=== PATIENT | male | born 1995 | race Caucasian/White ===

== ENCOUNTER 2022-08-19 14:14 | Emergency (ER) | payer MEDICAID, SELFPAY ==
[2022-08-19 14:15] VITALS: BP 157/100; PULSE 73; RESP 18; TEMP 37.1; O2SAT 99; BMI 30.2
--- NOTE | 2022-08-19 15:03 | EX.ED.DYSGE1 ---
HPI <VELVET Sanon - Last Filed: 08/19/22 16:02> History of Present Illness Chief Complaint: Other, Pain/Inj Narrative Narrative: Patient is a 26-year-old male with no stated medical history who presents to the emergency department with complaints of neck pain, throat pain on and off for the last 4 days. Patient states he did have a fever last evening. Patient states it is worsening with swallowing, eating. He denies any difficulty breathing. States maybe he had some ileus in the past however only last 2 days. He does not have a PCP at this time. PFSH <VELVET Sanon - Last Filed: 08/19/22 16:02> [facility] Medical History no medical history Home Medications ibuprofen 600 mg tablet 600 mg PO Q6H PRN PRN fever or pain #20 TABLETS 08/19/22 [Rx Last Taken Unknown] Social History Smoking Status: Never smoker ROS <VELVET Sanon - Last Filed: 08/19/22 16:02> ROS ED ROS Narrative Constitutional: Negative for fever, chills, weight loss, weakness Eyes: Negative for vision loss, vision change, double vision ENT: Negative for any ear pain, congestion. Positive for sore throat, intermittent anterior neck pain Cardiovascular: Negative for any chest pain, tightness, palpitations Respiratory: Negative for any cough, sputum production, hemoptysis, dyspnea, dyspnea on exertion, orthopnea Gastrointestinal: Negative for any abdominal pain, nausea, vomiting, diarrhea, constipation, blood in stool, blood in vomit : Negative for any urinary frequency, dysuria, retention, blood in urine Muscle skeletal: Negative for any muscle joint pain, stiffness, myalgias, arthralgias, neck pain, back pain Neurological: Negative for any headache, syncope, numbness or tingling, dizziness Skin: Negative for any rashes, lumps, itching, abrasions, lacerations Psychiatric: Negative for any depression, anxiety, stress, suicidal ideation, homicidal ideation Hematologic: Negative for any easy bruising, excessive bruising, easy bleeding Allergies: Negative for any eczema, hives, rash EXAM <VELVET Sanon Last Filed: 08/19/22 16:02> Physical Exam Narrative Exam Narrative: Vital signs reviewed. HEET: Head normocephalic atraumatic, TMs clear bilaterally. Posterior pharynx is clear, moist mucous membranes. Nares clear bilaterally. Patient does have slight erythema to the posterior pharynx. A for any exudate. Negative for any unilateral swelling. Negative for any uvula deviation.. Neck: Supple, patient does have some anterior cervical lymph node lymphadenopathy with slight tenderness. No tracheal deviation.. No signs of meningismus, negative jolt sign. Cardiac: Regular rate and rhythm no murmurs gallops or rubs, equal peripheral pulses bilaterally. Respiratory: Lungs clear to auscultation bilaterally. No chest tenderness. Abdomen: Soft, nontender, nondistended. No abdominal bruit or pulsatile masses. No hepatosplenomegaly Extremities: No peripheral edema, no signs of gross trauma or deformity. Active full range of motion of all extremities. Neuro: Cranial nerves II through XII intact, no focal neurological deficits. Skin: Clean dry and intact with no rash, purpura, petechiae, vesicles or pustules. Backs/flank: No CVA tenderness, no midline spinal tenderness, no deformity. Psych: Normal mood and affect. No SI, HI or acute psychosis. Const Vital Signs: 08/19/22 14:15 08/19/22 16:08 Temperature 98.8 F Temperature Source Temporal Pulse Rate 73 71 Respiratory Rate 18 15 Blood Pressure 157/100 H 108/67 Blood Pressure Mean 119 Pulse Ox 99 98 Oxygen Delivery Method Room Air <Dr. Ant Adams MD - Last Filed: 08/19/22 16:24> Physical Exam Const Vital Signs: 08/19/22 14:15 08/19/22 16:08 Temperature 98.8 F Temperature Source Temporal Pulse Rate 73 71 Respiratory Rate 18 15 Blood Pressure 157/100 H 108/67 Blood Pressure Mean 119 Pulse Ox 99 98 Oxygen Delivery Method Room Air [facility] <VELVET Sanon - Last Filed: 08/19/22 16:02> MDM Radiography Diagnostic Testing: Clinical Impression(s) from Imaging Studies Soft Tissue Neck X-Ray 08/19/22 15:27 IMPRESSION: No evidence of epiglottitis thickening or enlargement of this examination. Electronically Signed: Chay Melendez MD at 15:44 EST , Treatment and Re-Evaluation :: All radiologic examinations were read, reviewed by the emergency department attending. From these reads, a plan of care will be put in place. Patient appears generally well, patient appears nontoxic. Patient presents emerged part with 3 to 4 days of sore throat, generalized fatigue, malaise. Patient received a rapid strep, rapid influenza/COVID test which were negative. That was in the differential. Patient received a x-ray of the soft tissue neck this was concerning for any epiglottitis, this was negative. At this time, patient be diagnosed with viral pharyngitis. He will use salt water gargles. Patient be given a prescription for ibuprofen. He will be for to PCP. At this time, patient stable for discharge, all questions were answered. He was given return precautions <Dr. Ant Adams MD - Last Filed: 08/19/22 16:24> [facility] Narrative Medical decision making narrative: I have personally performed a face to face assessment of the patient and have reviewed the DORETHA Note. I performed a substantive portion of the visit including all aspects of the following. My avila findings include: History is remarkable for sore throat. Patient does not complain of jaw pain. He localizes the pain to the larynx. He complains of pain with swallowing liquids and solids. He states yesterday he had a fever. He did report mild rhinorrhea and cough. He denies headache. He denies photophobia, neck pain or stiffness. He denies swelling of his face or neck. He does endorse change in his voice. He denies drooling. He denies history rheumatic fever, heart murmur, mitral valve prolapse, SBE or being immune suppressed. Exam is head is atraumatic normocephalic. TMs are normal. Ears are normal. Nares patent with no significant discharge. Posterior pharynx reveals minimal erythema. There is no exudate. Uvula is midline. There is no evidence of angioedema. There is no trismus. There is no submental or submandibular or anterior cervical lymphadenopathy. There is no discomfort with movement of the larynx. There is no inspiratory expiratory stridor. Lungs are clear to auscultation. Heart is regular. Rate is normal. There is no murmur, gallop or rub. Medical Decision Making differential diagnosis would include viral pharyngitis, streptococcal pharyngitis and with him complaining of pain in the larynx area need to evaluate for epiglottitis. 2 views soft tissue x-ray of the neck was obtained. Patient's vitals are remarkable for an elevated blood pressure. He is afebrile Other additions or changes: [None] Radiography Chest X-Ray - ED: 2 View and Read by ED Physician (Madelaine direct x-ray of the neck reveals no evidence of epiglottitis. There is no sublingual or tonsil enlargement. There is no prevertebral space. The osseous structures are unremarkable. This was independent reviewed interpreted by me at 1543.) Diagnostic Testing: Clinical Impression(s) from Imaging Studies Soft Tissue Neck X-Ray 08/19/22 15:27 IMPRESSION: No evidence of epiglottitis thickening or enlargement of this examination. Electronically Signed: Chay Melendez MD at 15:44 EST , Discharge Plan Triage Chief Complaint: Other, Pain/Inj ED Midlevel Provider: Dominic Zuniga ED Provider: Ant Adams Dx/Rx/DC Orders Clinical Impression: Viral syndrome, Pharyngitis Instructions: ED URI, Viral, No Abx (Adult) Prescriptions: New ibuprofen 600 mg tablet 600 mg PO Q6H PRN PRN (Reason: fever or pain) Qty: 20 0RF Primary Care Provider: Care Physician,No Primary Referrals: Dominic Jimenez MD [Med Staff - Active Staff] - Care Physician,No Primary [Primary Care Provider] - Activity Restrictions/Additional Instructions: Please use ibuprofen. Maintain hydration. Follow-up with PCP. Disposition Disposition: Home, Self Care Discharge Date/Time: 08/19/22 16:08
--- NOTE | 2022-08-19 15:27 | RAD_ITS ---
INDICATION: concern for epiglottitis EXAMINATION/TECHNIQUE: X-RAY - XR Neck Soft Tissue COMPARISON: None. FINDINGS: SOFT TISSUES: Unremarkable. No radiopaque foreign body. EPIGLOTTIS: No pathologic thickening or enlargement. PROXIMAL AIRWAY: Patient to be patent but is not dilated on the frontal view. RAD/Neck for Soft Tissue IMPRESSION: No evidence of epiglottitis thickening or enlargement of this examination. Electronically Signed: Chay Melendez MD at 15:44 EST ,
[2022-08-19 16:08] VITALS: BP 108/67; PULSE 71; RESP 15; O2SAT 98
== END 2022-08-19 16:08 | disposition home or self-care (01) ==
PROVIDERS: Emergency Provider Emergency Medicine; Visit Provider Emergency Medicine
DX: J02.9 Acute pharyngitis, unspecified (principal)
CPT/HCPCS: 70360; 87428; 87880; 99282